=== PATIENT | male | born 1970 | race Two or more races ===

== ENCOUNTER 2021-06-19 15:49 | Emergency (ER) | payer SELFPAY ==
[~2021-06-19] VITALS: Ht 162.6 cm; Wt 70.3 kg
[2021-06-19] MEDS ORDERED: THIAMINE HCL 200 MG/2 ML VIAL IV ONE (16:30)
[2021-06-19] MEDS ORDERED: THIAMINE HCL 200 MG/2 ML VIAL ONE (17:15)
[2021-06-19 17:20] LABS: HEMATOCRIT 34.3 % (36.7-47.1); MEAN CORPUSCULAR HEMOGLOBIN 31.5 uug (23.8-33.4); PLATELET COUNT (AUTO) 84 K/uL (152-348)
[2021-06-19 17:25] LABS: POTASSIUM 4.1 mmol/L (3.5-5.1)
[2021-06-19 17:31] LABS: BILIRUBIN,TOTAL 0.8 mg/dL (0.2-1.0); TOTAL PROTEIN, SERUM 7.6 g/dL (6.4-8.2)
[2021-06-19 18:09] LABS: EOSINOPHILS % (MANUAL) 10 % (0-8); LYMPHOCYTES % (MANUAL) 29 % (20-40); MONOCYTES % (MANUAL) 10 % (2-10); NEUTROPHILS % (MANUAL) 51 % (42-75)
--- NOTE | 2021-06-19 19:02 | NUR ---
RECIEVED REPORT FROM [facility] PT NOTED TO BE IN BED, RESTING, AROUSABLE, CLEAR SPEECH, COMPLETE SENTENCES. A/O X3.
--- NOTE | 2021-06-19 20:02 | NUR ---
Patient given written and verbal discharge instructions. A/O x4, no SOB or labored breathing, afebrile. Patient verbalizes understanding of instructions. Patient is ambulatory with steady gait. Refuses offer of half-way placement. Patient given list of available shelters in surrounding area. Offered pt fluids and dinner.
[2021-06-19 20:03] VITALS: BP 136/81
== END 2021-06-19 20:04 | disposition home or self-care (01) ==
LOC: ER 15:50
DX: F10.120 Alcohol abuse with intoxication, uncomplicated (principal); Y90.8 Blood alcohol level of 240 mg/100 ml or more; D64.9 Anemia, unspecified; Z20.822 Contact with and (suspected) exposure to COVID-19; Z59.00 Homelessness unspecified; F17.200 Nicotine dependence, unspecified, uncomplicated
CPT/HCPCS: 70450; 80053; 80320; 85007; 85025; 87426; 96374; 99284; J3411; 36415; 70030-TC; A4663; G0480; J7030